=== PATIENT | male | born 1960 | race Caucasian/White ===

== ENCOUNTER 2024-09-09 13:20 | Outpatient (AMB) | payer OTHER, SELFPAY ==
--- NOTE | 2024-09-09 13:24 | MHC.OFFVIS ---
Vital Signs 09/09/24 13:26 Height 6 ft Weight 362 lb 4 oz BMI 49.1 BP 122/80 Blood Pressure Location Rt brachial Position Sitting Pulse 94 Pulse Source Pulse Oximeter Pulse Oximetry (%) 96 Oxygen Delivery Method Room Air Intake Visit Reasons: Somnolence Allergies No Known Allergies Allergy (Verified 09/09/24 13:28) HPI HPI Somnolence: Details: Sonido is a pleasant 62-year-old male, former smoker, with underlying atrial fibrillation maintained on Eliquis. He was referred by PCP for pulmonary evaluation with question of obstructive sleep apnea. He was recently diagnosed with atrial fibrillation status post failed cardioversion with plan for possible ablation. He is under the care of [facility] who believes AFib is related to uncontrolled obstructive sleep apnea. Reports ongoing witnessed apneas and loud snoring. He denies daytime fatigue however notes falling asleep quite easily during the day. He also notes that when he was under monitored anesthesia for ABDELRAHMAN his oxygen saturation dropped into the 50s. Denies the need for supplemental oxygen. He currently denies any respiratory symptoms. Denies prior history of asthma/COPD. COUNT INCLUDES THE [facility] Social History (Updated 09/09/24 @ 13:29 by Mirna Morris [facility]) Patient Tobacco Use Status: Never used Tobacco Review of Systems Const Denies chills, Denies excessive sweating, Denies fever(s), Denies headache(s) and Denies night sweats Eyes Denies dry eyes, Denies irritation and Denies itchy eyes ENT Reports Normal hearing present, Denies headache(s), Denies nasal congestion, Denies nasal discharge, Denies post nasal drip and Denies sore throat Card Denies chest pain, Denies chest pain at rest, Denies chest pain with activity, Denies claudication, Denies leg edema, Denies dyspnea, Denies dyspnea on exertion, Denies orthopnea and Denies paroxysmal nocturnal dyspnea Resp Denies chest congestion, Denies cough, Denies excessive phlegm production, Denies pain on inspiration, Denies pain with cough, Denies dyspnea, Denies dyspnea on exertion, Denies stridor and Denies wheezing Musc Denies myalgias Neuro Reports Normal hearing present and Denies headache(s) Endo Denies excessive sweating Ángel/Lymph Denies lymphadenopathy Aller/Immun Denies itchy eyes, Denies seasonal rhinorrhea and Denies wheezing Physical Exam Vital Signs: Last Vital Signs Pulse 94 09/09/24 13:26 BP 122/80 09/09/24 13:26 Pulse Ox 96 09/09/24 13:26 Oxygen Delivery Method Room Air 09/09/24 13:26 BMI result Body Mass Index 49.1 Const General: cooperative, healthy appearing, comfortable, no acute distress, well developed and alert Nutritional Appearance: obese Orientation/consciousness: patient oriented x3 Limitations: no limitations HEENT Head: Yes normal to inspection, Yes normocephalic and Yes atraumatic Ears: hearing grossly normal bilaterally and external ears normal Eyes General: appearance normal, both eyes and all related structures Eyelids: Yes eyelids normal Sclerae: sclerae normal EOM: EOMs intact bilaterally Neck Neck: Yes normal visual inspection and Yes no lymphadenopathy Lymphatic: no lymphadenopathy noted Chest Chest palpation & inspection: normal inspection of the chest Resp Effort & Inspection: normal respiratory effort, able to speak in complete sentences, no audible wheezes, no cough, no stridor, not tachypneic, no tripod positioning and no use of accessory muscles Auscultation: clear to auscultation bilaterally Cardio Jugular venous distension: no JVD Rate: regular rate Rhythm: regular rhythm Skin Other: warm, dry General skin exam: no rashes or lesions noted Neuro General: patient oriented x3 Cranial nerves: Yes Normal hearing present Cognition (Neuro): normal cognition Gait exam (Neuro): Normal gait present Extrem General: Yes normal to inspection, Yes capillary refill normal, Yes no clubbing, cyanosis or edema and Yes no pedal edema Psych Appearance: grossly normal and well kempt Speech and movement: Normal speech and movement present and Clear speech present Affect: normal affect Attitude: cooperative Thought process: Normal thought process present Thought content: Normal thought content present Insight: Good insight present (Psych) Judgement: Good judgement present (Psych) Assessment & Plan Assessment & Plan (1) Witnessed episode of apnea: Code(s): R06.81 - Apnea, not elsewhere classified Category: Medical (2) Loud snoring: Code(s): R06.83 - Snoring Category: Medical (3) Morbid obesity: Code(s): E66.01 - Morbid (severe) obesity due to excess calories Category: Medical Plan Sonido presents for pulmonary evaluation for symptoms suggestive of obstructive sleep apnea. Will send for in sleep study to further evaluate. All questions were answered and patient is in agreement with plan. Will follow-up to review results or sooner if needed. Orders: Orders RT PSG in-lab sleep study Today E66.01 - Morbid (severe) obesity due to excess calories, R06.81 - Apnea, not elsewhere classified, R06.83 - Snoring Coding Level of Care Code New Pt Level 3 (11383) Diagnoses Witnessed episode of apnea R06.81 Loud snoring R06.83 Morbid obesity E66.01
--- OUTSIDE RECORDS SUMMARY | 2024-09-09 13:24 | XMS_ITS | Clinical Summary ---
Author Organization [facility] [employer] [facility] Address [address] [place] [address] Phone Care Team Providers Care Locomotive Engineer Diesel Name Role Phone Moses Nielsen MD Primary Care Provider [phone] Allergies No known active allergies Medications EPINEPHrine (AUVI-Q) 0.15 mg/0.15 mL inj auto-injector injection Inject 0.15 mL (0.15 mg total) into the thigh 1 (one) time if needed. Active apixaban (ELIQUIS) 5 mg tablet Take 1 tablet (5 mg total) by mouth 2 (two) times a day. 60 tablet 11 5 Active dilTIAZem CD (CARDIZEM CD) 240 mg 24 hr capsule Take 1 capsule (240 mg total) by mouth 1 (one) time each day. 90 each 3 5 Active metoprolol tartrate (LOPRESSOR) 25 mg tablet Take 1 tablet (25 mg total) by mouth 2 (two) times a day. 180 each 3 5 Active dilTIAZem CD (CARDIZEM CD) 120 mg 24 hr capsule Take 2 capsules (240 mg total) by mouth 1 (one) time each day. 30 capsule 1 5 09/03/19 25 Discontinu ed(Reorder ) Active Problems Problem Noted Date Diagnosed Date Obstructive sleep apnea syndrome 08/08/2024 Assessment & Plan (09/02/2024 8:27 AM EDT): He has been diagnosed with JERMAIE and has an apt with sleep medicine pulmonology next week and apt for CPAP fitting in October. Atrial fibrillation with rap id ventricular response (CMS/HCC V24, CMS/HCC V28) 08/01/2024 Assessment & Plan (09/02/2024 8:28 AM EDT): Patient has newly diagnosed atrial fibrillation and the onset was unclear due to no symptoms of palpitations. It remains unclear whether atrial fibrillation is paroxysmal or has been persistent. He underwent a successful ABDELRAHMAN cardioversion on 08/08/2024 but unfortunately EKG done in the office today shows atrial fibrillation with rapid ventricular response with a rate of 103 bpm. He remains asymptomatic. I will reinitiate metoprolol 25 mg twice a day. He will continue on diltiazem 240 mg daily. Continue on Eliquis for a [id number] score of 2 for now. I am taking the liberty of referring him to the electrophysiology service to discuss management of atrial fibrillation, possibly initiating antiarrhythmics before attempting another cardioversion versus ablation or leaving him in permanent atrial fibrillation as he has been asymptomatic. He agrees to meet with the EP service. Assessment & Plan (08/02/2024 4:44 PM EDT): He has a newly diagnosed atrial fibrillation and onset is unclear due to no palpitation symptoms. It Is also unclear whether atrial fibrillation is paroxysmal or has been persistent. Heart rate appears slightly fast in the office but he reported low pulse rate using home pulse ox meter. I will scheduled 24-hour Holter monitor to assess heart rate variation and adjust metoprolol dosage accordingly. I will start him on anticoagulation with intention of sikhism of sinus rhythm. We discussed about risk and benefit of anticoagulation and he agreed with the plan. Will start Eliquis 5 mg twice a day for now. His blood pressure is in the high normal range on metoprolol 50 mg twice a day my office and his blood pressure in the [place] was also elevated. I think he has undiagnosed hypertension. The elevated proBNP level also suggests heart failure with preserved EF. His [id number] Vas score will be 2 for now. I feel he will need to long-term anticoagulation eventually. He snores per his and he could have a obstructive sleep apnea. This could be a potential trigger for his A-fib. I will check thyroid function. At some point, I will schedule coronary artery CTA after he is back to sinus rhythm due to intermittent chest burning sensation. Chest pain 08/01/2024 Encounters Date Type Department Care Team Description 09/02/2024 7:40 AM EDT Office Visit [facility] - [address] [place] [phone] Bree Stein NP Atrial fibrillation with rapid ventricular response (CMS/HCC V24, CMS/HCC V28) (Primary Dx); Obstructive sleep apnea syndrome 08/23/[address] [place] [phone] Bree Stein NP 08/08/2024 1:33 PM EDT Anesthesia Event [facility]em [facility] [address] [place] [phone] Leonora Guadarrama MD 08/08/2024 12:23 PM EDT - 08/08/2024 11:59 PM EDT Hospital Encounter [facility] [address] [place] [phone] Tammy Avalos MD Kriz, Petra, MD Atrial fibrillation, unspecified type (CMS/HCC V24, CMS/HCC V28) Discharge Disposition: Home or Self Care 08/08/2024 Telephone Gastroenterology - [address] [facility] [address] [facility] [address] [place] [phone] Miguel Rodriguez MD special procedure 08/04/2024 Telephone [facility] - [address] [place] [phone] Tammy Avalos MD Procedure (Cardioversion 4.21.25) 08/03/2024 4:04 PM EDT - 08/03/2024 11:59 PM EDT Hospital Encounter [facility] Non-Invasive Cardiology [address] [place] [phone] Unspecified atrial fibrillation (CMS/HCC V24, CMS/HCC V28) Discharge Disposition: Home or Self Care 08/03/2024 Telephone [facility] - [address] [place] [phone] Maria E Martins [place] 08/02/2024 2:30 PM EDT Ancillary Procedure [facility] - [address] [place] [phone] A-fib (CMS/HCC V24, CMS/HCC V28) 08/02/2024 1:30 PM EDT Office Visit [facility] - [address] [place] [phone] Tammy Avalos MD Atrial fibrillation with rapid ventricular response (CMS/HCC V24, CMS/HCC V28) (Primary Dx); A-fib (CMS/HCC V24, CMS/HCC V28) from Last 3 Months Medical History Medical History Date Comments Severe obesity (CMS/HCC V24, CMS/HCC V28) BPH (benign prostatic hyperplasia) Social History Tobacco Use Types Packs/Day Years Used Date Smoking Tobacco: Never Smokeless Tobacco: Never Tobacco Cessation:Counseling Given: Not Answered Alcohol Use Standard Drinks/Week Comments Never 0 (1 standard drink = 0.6 oz pur e alcohol) Sex and Gender Information Value Date Recorded Sex Assigned at Male 08/08/2024 12:22 PM EDT Legal Sex Male 8:12 AM EDT Gender Identity Male 08/08/2024 12:22 PM EDT Sexual Orientation Straight 08/08/2024 12 :22 PM EDT Obstetrics History Last Filed Vital Signs Vital Sign Reading Time Taken Comments Blood Pressure 138/78 09/02/2024 7:40 AM EDT Pulse 103 09/02/2024 7:40 AM EDT Temperature 36.3 ??C (97.4 ??F) 08/08/2024 1:09 PM ED T Respiratory Rate 19 08/08/2024 2:50 PM EDT Oxygen Saturation 98% 09/02/2024 7:40 AM EDT Inhaled Oxygen Concentration - - Weight 163 kg (360 lb) 09/02/2024 7:40 AM EDT Height 182.9 cm (6' 0.01 ) 09/02/2024 7:40 AM ED T Body Mass Index 48.81 09/02/2024 7:40 AM EDT Plan of Treatment Upcoming Encounters Date Type Department Care Team (Late st Contact Info) Description 11/07/2024 8:40 AM EDT Consult [facility] - [facility] [address] [facility] [address] [place] [phone] Keagan Sanchez MD [address] [facility] [address] [place] [address] Health Maintenance Due Date Last Done Comments DTaP,Tdap,and Td Vaccines (1 - Tdap) 11/06/1979 Pneumococcal Vaccine: 50+ Years (1 of 1 - PCV) 2010 Zoster Vaccines (1 of 2) 2010 RSV Immunization Adult Patients (1 - Risk 60-74 years 1-dose series) 2020 COVID-19 Vaccine (4 - 2023-2 5 season) 2023 05/19/2021, 09/16/2020, 08/19/2020 Cholesterol Screening (Lipid Panel) 07/29/2024 Colorectal Cancer Screening: Colonoscopy 07/29/2024 Depression Screening 07/29/2024 HIV Screening 07/29/2024 Hepatitis C Screening 07/29/2024 Social Influencers of Health Screening 07/29/2024 Influenza Vaccine (Season Ended) 2024 HIB Vaccines Aged Out No longer eligi ble based on patient's age to complete this topic HPV Vaccines Aged Out No longer eligi ble based on patient's age to complete this topic Hepatitis A Vaccines Aged Out No long er eligible based on patient's age to complete this topic Hepatitis B Vaccines Aged Out No long er eligible based on patient's age to complete this topic IPV Vaccines Aged Out No longer eligi ble based on patient's age to complete this topic MMR Vaccines Aged Out No longer eligi ble based on patient's age to complete this topic Meningococcal ACWY Vaccine Aged Out N o longer eligible based on patient's age to complete this topic Meningococcal B Vaccine Aged Out No l onger eligible based on patient's age to complete this topic Pneumococcal Vaccine: Pediatrics (0 to 5 Years) and At-Risk Patients (6 to 64 Years) Aged Out No longer eligible b ased on patient's age to complete this topic RSV Immunization Patients Under 20 months Aged Out No longer eligible b ased on patient's age to complete this topic Varicella Vaccines Aged Out No longer eligible based on patient's age to complete this topic Procedures Procedure Name Priority Date/Time Associated Diagnosis Comments ECG 12-LEAD Routine 09/02/2024 8:29 AM EDT Atrial fibrillation with rapid ventricular response (CMS/HCC V24, CMS/HCC V28) ECG OUTSIDE 08/10/2024 ABDELRAHMAN COMPLETE Routine 08/08/2024 2:23 PM EDT Atrial fibrillation, unspecified type (CMS/HCC V24, CMS/HCC V28) PROCEDURAL ECG STAT 08/08/2024 2:14 PM EDT ECG 12-LEAD Routine 08/03/2024 4:21 PM EDT Unspecified atrial fibrillation (CMS/HCC V24, CMS/HCC V28) CARDIAC HOLTER MONITOR (REPORT GENERATED IN HOUSE) Routine 08/02/2024 2:32 PM EDT A-fib (CMS/HCC V24, CMS/HCC V28) from Last 3 Months Results * ECG 12 lead (09/02/2024 8:29 AM EDT) Only the most recent of2 resultswithin the time period is included. Ventricular Rate ECG 103 BPM GEMUSE Atrial Rate 98 BPM GEMUSE QRS Duration 94 ms GEMUSE Q-T Interval 350 ms GEMUSE QTc 458 ms GEMUSE R [place] 70 degrees GEMUSE T [place] 27 degrees GEMUSE ECG Interpretation Atrial fibrillation with rapid ventricular response Confirmed by MD Zander, Matthieu ([id number]) on 09/05/2024 8:27:25 AM GEMUSE 09/02/2024 7:46 AM EDT 09/05/2024 8:27 AM EDT Bree Stein NP ECG ORDERABLES Edited Result - Final GEMUSE * ECG-Outside (08/10/2024) us Provider Onbase MD ECG ORDERABLES Final Result * ABDELRAHMAN COMPLETE (08/08/2024 2:23 PM EDT) BSA 2.86 m2 CV PACS Anatomical Region Laterality Modality X-Ray Angiograph y Narrative 08/08/2024 4:50 PM EDT ?Left ventricle cavity size is normal. Left ventricular systolic function is in the normal range with an ejection fraction of 55-60%.No regional LV wall motion abnormalities noted. ?Right ventricle cavity is mildly enlarged. Right ventricular systolic function is normal. ?Left atrial appendage emptying velocity is in mildly decreased to low normal range. ??No thrombus in the left atrial appendage. ?Mild mitral regurgitation. ?Mild tricuspid regurgitation. The patient demonstrates signs of significant obstructive sleep apnea during ABDELRAHMAN with transient hypoxia. ??He has been referred for sleep study by his primary care physician. ??At the meantime, advise him to sleep in lateral position with elevated head. Left Ventricle Left ventricle cavity size is normal. Systolic function is normal with an ejection fraction of 55-60%. There are no regional LV wall motion abnormalities. Right Ventricle Right ventricle cavity is mildly dilated. Systolic function is normal. Left Atrium Left atrium cavity is mildly dilated. The atrial appendage velocity is reduced (less than 40 cm/sec) to low normal range. There is no thrombus in the left atrial appendage. Right Atrium Right atrium cavity is mildly dilated. Mitral Valve Mitral valve structure is normal. There is mild regurgitation. There is no evidence of mitral valve stenosis. Tricuspid Valve Tricuspid valve structure is normal. There is mild regurgitation. There is no evidence of tricuspid valve stenosis. Cannot assess RVSP. Aortic Valve The aortic valve is trileaflet. There is no regurgitation or stenosis. Pulmonic Valve Visualized portions of the pulmonic valve appear normal. There is trace pulmonic valve regurgitation. There is no evidence of pulmonic valve stenosis. Ascending Aorta The aorta appears normal in size. Pericardium Pericardium appears normal. Study Details Overall the study quality was adequate. The underlying ECG rhythm was atrial flutter. The probe was inserted by the labor employment associate. There was no probe insertion difficulty. Topical medication administered: lidocaine gel. The patient had no complications. No specimens were collected. Tammy Avalos MD CV ECHO PROCEDURES Final Result * ECG 12 lead - Procedural (No Charge) (08/08/2024 2:14 PM EDT) Ventricular Rate ECG 61 BPM GEMUSE Atrial Rate 61 BPM GEMUSE P-R Interval 166 ms GEMUSE QRS Duration 92 ms GEMUSE Q-T Interval 438 ms GEMUSE QTc 440 ms GEMUSE P Wave [place] 27 degrees GEMUSE R [place] 38 degrees GEMUSE T [place] 3 degrees GEMUSE ECG Interpretation Normal sinus rhythm Normal ECG When compared with ECG of 03-AUG-2024 16:21, Sinus rhythm has replaced Atrial flutter with 2 to 1 block Vent. rate has decreased BY ??70 BPM Confirmed by Keith AVALOS YUFENG ([id number]) on 08/09/2024 7:58:31 AM GEMUSE 08/08/2024 2:14 PM EDT 08/09/2024 7:58 AM EDT Tammy Avalos MD ECG ORDERABLES Final Result GEMUSE * CARDIAC HOLTER MONITOR (REPORT GENERATED IN HOUSE) (08/02/2024 2:32 PM EDT) Anatomical Region Laterality Modality Cardiac Diagnost ic Narrative 08/05/2024 12:30 PM EDT [facility] DEPARTMENT [address] [place] [address], [place] [address] TEL: FAX: Type of test: ??24 hour Holter Monitor Date of test: ??08/02/24 Ordering provider: ??Tammy Avalos MD Reason for Test: ??Atrial Fibrillation PVCA Clinical Services Manager Findings: 1: Atrial Fibrillation/ Flutter noted throughout recording period. 2: Ventricular rate range was 75- 169 bpm with an average of 127 bpm. 3: Rare PVCs with two couplets. 4: No pauses noted. Longest R-R 1.3 sec. 5: Diary returned with no entries. Impression: Persistent atrial fibrillation with a rapid ventricular response. ??Average heart rate 127 bpm. us Tammy Avalos MD CV CARDIAC SERVICES PROCEDURES F inal Result from Last 3 Months Insurance ED [facility] [address] [place] [address] Care Teams Locomotive Engineer Diesel Relationship Specialty Start Date End Date Moses Nielsen MD [address] [facility] [address] [place] [address] PCP - General Oncology 08/03/24
[2024-09-09 13:26] VITALS: BP 122/80; PULSE 94; O2SAT 96; BMI 49.1
== END 2024-09-09 14:25 | disposition home or self-care (01) ==
LOC: HO.HPSW 13:20
PROVIDERS: PCP Internal Medicine Medical Oncology; Referring Provider Internal Medicine Medical Oncology; Visit Provider Nurse Practitioner Family
DX: R06.81 Apnea, not elsewhere classified (principal); R06.83 Snoring; E66.01 Morbid (severe) obesity due to excess calories
CPT/HCPCS: 99203

== ENCOUNTER → 2024-10-06 19:30 | Outpatient (REF) | payer OTHER, SELFPAY ==
--- OUTSIDE RECORDS SUMMARY | 2024-10-10 07:59 | XMS_ITS | Clinical Summary ---
Author Organization [facility] Address [address] [place] [address] Phone Care Team Providers Care Lead Mobile Developer Name Role Phone Moses Nielsen MD Primary Care Provider [phone] Allergies No known active allergies Medications EPINEPHrine [...] metoprolol tartrate (LOPRESSOR) 25 mg tablet Take 1.5 tablets (37.5 mg total) by mouth 2 (two) times a day. Active metoprolol tartrate (LOPRESSOR) 25 mg tablet Take 1 tablet (25 mg total) by mouth 2 (two) times a day. 180 each 3 5 09/20/19 25 Discontinued Active Problems Problem Noted Date Diagnosed Date Obstructive sleep apnea syndrome 08/08/2024 Assessment & Plan (09/02/2024 8:27 AM EDT): He has been diagnosed with JERAMIE and has an apt with sleep medicine [...] mg daily. Continue on Eliquis for a [id number] score of 2 for now. I am [...] start him on anticoagulation with intention of buddhism of sinus rhythm. We discussed about risk and benefit of anticoagulation and he agreed with the plan. Will start Eliquis 5 mg twice a day for now. His blood pressure is in the high normal range on metoprolol 50 mg twice a day my office and his blood pressure in the [facility] was also elevated. I think he has undiagnosed hypertension. The elevated proBNP level also suggests heart failure with preserved EF. His [id number] Vas score will be 2 for now. [...] Encounters Date Type Department Care Team Description 09/19/[address] [facility] [address] [place] [address] Bree Stein NP Medication 09/02/2024 7:40 AM EDT Office Visit [facility] [address] [place] [address] Bree Stein NP Atrial fibrillation with rapid ventricular response (CMS/HCC V24, CMS/HCC V28) (Primary Dx); Obstructive sleep apnea syndrome 08/23/2024 [address] [facility] [address] [place] [address] Bree Stein NP 08/08/2024 1:33 PM EDT Anesthesia Event [facility] [address] [place] [phone] Leonora Guadarrama MD 08/08/2024 12:23 PM EDT - 08/08/2024 11:59 PM EDT Hospital Encounter [facility] [address] [place] [phone] Tammy Avalos MD Kriz, Petra, MD Atrial fibrillation, unspecified type (CMS/HCC V24, CMS/HCC V28) Discharge Disposition: Home or Self Care 08/08/2024 Telephone Gastroenterology - [address] [facility] [address] [address] [place] [phone] Miguel Rodriguez MD special procedure 08/04/2024 Telephone [facility] [address] [place] [phone] Tammy Avalos MD Procedure (Cardioversion 4.21.25) 08/03/2024 4:04 PM EDT - 08/03/2024 11:59 PM EDT Hospital Encounter [facility] Non-Invasive Cardiology [address] [place] [phone] Unspecified atrial fibrillation (CMS/HCC V24, CMS/HCC V28) Discharge Disposition: Home or Self Care 08/03/2024 Telephone [facility] Cardiology [facility] [address] [place] [address] Maria E Martins MA 08/02/2024 2:30 PM EDT Ancillary Procedure [facility] Cardiology [facility] [address] [place] [phone] A-fib (CMS/HCC V24, CMS/HCC V28) 08/02/2024 1:30 PM EDT Office Visit [facility] Cardiology [facility] [address] [place] [phone] Tammy Avalos MD Atrial fibrillation with rapid [...] 103 09/02/2024 7:40 AM EDT Temperature 36.3 C (97.4 F) 08/08/2024 1:09 PM EDT Respiratory Rate 19 08/08/2024 2:50 PM EDT [...] Info) Description 11/07/2024 8:40 AM EDT Consult [facility] [address] [facility] [address] [place] [address] Keagan Sanchez MD [address] [facility] [address] [place] [address] Health Maintenance Due Date Last Done Comments [...] ms GEMUSE QTc 458 ms GEMUSE R [place] 70 degrees GEMUSE T [place] 27 degrees GEMUSE ECG Interpretation Atrial fibrillation [...] Angiograph y Narrative 08/08/2024 4:50 PM EDT Left ventricle cavity size is normal. Left ventricular systolic function is in the normal range with an ejection fraction of 55-60%.No regional LV wall motion abnormalities noted. Right ventricle cavity is mildly enlarged. Right ventricular systolic function is normal. Left atrial appendage emptying velocity is in mildly decreased to low normal range. No thrombus in the left atrial appendage. Mild mitral regurgitation. Mild tricuspid regurgitation. The patient demonstrates signs of significant obstructive sleep apnea during ABDELRAHMAN with transient hypoxia. He has been referred for sleep study by his primary care physician. At the meantime, advise him to sleep in [...] flutter. The probe was inserted by the brine tank operator. There was no probe insertion difficulty. Topical [...] GEMUSE QTc 440 ms GEMUSE P Wave [place] 27 degrees GEMUSE R [place] 38 degrees GEMUSE T [place] 3 degrees GEMUSE ECG Interpretation Normal sinus rhythm Normal ECG When compared with ECG of 03-AUG-2024 16:21, Sinus rhythm has replaced Atrial flutter with 2 to 1 block Vent. rate has decreased BY 70 BPM Confirmed by Keith AVALOS YUFENG ([id number]) on 08/09/2024 7:58:31 AM GEMUSE 08/08/2024 2:14 PM EDT 08/09/2024 7:58 AM EDT Tammy Avalos MD ECG ORDERABLES Final Result GEMUSE * CARDIAC HOLTER MONITOR (REPORT GENERATED IN HOUSE) (08/02/2024 2:32 PM EDT) Anatomical Region Laterality Modality Cardiac Diagnost ic Narrative 08/05/2024 12:30 PM EDT [facility] DI[facility]ING DEPARTMENT [address] [place] [address], [place] [address] TEL: FAX: Type of test: 24 hour Holter Monitor Date of test: 08/02/24 Ordering provider: Tammy Avalos MD Reason for Test: Atrial Fibrillation PVCA Supply Crib Attendant Findings: 1: Atrial Fibrillation/ Flutter noted throughout recording period. 2: Ventricular rate range was 75- 169 bpm with an average of 127 bpm. 3: Rare PVCs with two couplets. 4: No pauses noted. Longest R-R 1.3 sec. 5: Diary returned with no entries. Impression: Persistent atrial fibrillation with a rapid ventricular response. Average heart rate 127 bpm. us Tammy Avalos MD CV CARDIAC SERVICES PROCEDURES F inal Result from Last 3 Months Insurance [facility] [address] [place] [address] Care Teams Lead Mobile Developer Relationship Specialty Start Date End Date Moses Nielsen MD [address] [facility] [address] [place] [address] PCP - General Oncology 08/03/24
== END ==
LOC: HO.SL 19:30
PROVIDERS: PCP Internal Medicine Medical Oncology; Visit Provider Nurse Practitioner Family
DX: G47.33 Obstructive sleep apnea (adult) (pediatric) (principal); R06.83 Snoring; E66.01 Morbid (severe) obesity due to excess calories
CPT/HCPCS: 95810

== ENCOUNTER → 2024-10-06 20:30 | Outpatient (REF) | payer OTHER, SELFPAY | LOC: HO.SL 20:30 | PROVIDERS: PCP Internal Medicine Medical Oncology; Visit Provider Internal Medicine Medical Oncology | DX: Z13.89 Encounter for screening for other disorder (principal) ==

== ENCOUNTER → 2024-10-06 22:11 | Outpatient (BNV) | payer OTHER, SELFPAY | PROVIDERS: PCP Internal Medicine Medical Oncology; Visit Provider Internal Medicine | DX: G47.33 Obstructive sleep apnea (adult) (pediatric) (principal) | CPT/HCPCS: 95810 ==

== ENCOUNTER 2024-10-26 08:51 | Outpatient (AMB) | payer OTHER, SELFPAY ==
--- OUTSIDE RECORDS SUMMARY | 2024-08-26 13:45 | XMS_ITS ---
Author Organization Moses Nielsen III, MD Address [address] [place] [address] [place] [address] Care Team Providers Care Photogrammetry Airplane Pilot Name Role Phone Moses Nielsen Primary Care Provider REASON FOR VISIT Follow up Social History Sex Assigned At : Social History Observation Description Sex Assigned At Male Encounters Encounter Location Date Provider Diagnosis Moses Nielsen III, MD [address] [place] [address] [place] [address] 08/26/2024 Moses Nielsen Plan Of Treatment Next Appt Details Provider Name:Moses Nielsen, 12/01/2024 10:30:00 AM, [address] [place] [address] [place], [address], Provider Name:Moses Nielsen, 07/28/2025 02:30:00 PM, [address] [place] [address] [place], [address], Progress Notes * Kimberly NASCIMENTOOB: [birth year] (63 yo M)Acc No.[id number]:08/26/2024 Progress Notes Patient: Lawrence JORDENSonido Provider: Antonio Nielsen MD :1960 A ge:63 Y S ex:Male Date:08/26/2024 Address:[address] [place], [place] [id number] Subjective: * Chief Complaints: * 1 . Follow up. * Medical History: Objective: * Vitals: Assessment: Plan: * Treatment: * Images: * The named appointment provid er may or may not be the originator of this progress note, and it is not deemed complete until electronically signed by the appointment provider. Sign off status: Pending * Provider: Antonio Nielsen MD Date: 0 08/26/2024 Generated for Yudi cam/Nika/Marino on: 0 10/26/2024 09:05 AM EDT
--- NOTE | 2024-10-26 08:57 | A.OFFVIS_ITS ---
Vital Signs 10/26/24 08:58 Height 6 ft Weight 359 lb BMI 48.7 BP 120/72 Blood Pressure Location Rt brachial Position Sitting Pulse 81 Pulse Source Pulse Oximeter Pulse Oximetry (%) 94 Oxygen Delivery Method Room Air Intake Visit Reasons: Somnolence Allergies No Known Allergies Allergy (Verified 10/26/24 09:00) HPI HPI Somnolence: Details: Sonido is a pleasant 6-year-old male, former smoker, with underlying atrial fibrillation maintained on Eliquis status post failed cardioversion with plan for possible ablation. He is under the care of [facility] who believes AFib is related to uncontrolled obstructive sleep apnea and was sent for in lab PSG. Today he presents to review results. He currently denies any respiratory symptoms. Of note, he is down 38 lbs in two months due to diet changes and motivated to continue. [facility] Social History Patient Tobacco Use Status: Never used Tobacco Review of Systems Const Denies chills, Denies excessive sweating, Denies fever(s), Denies headache(s) and Denies night sweats Eyes Denies dry eyes, Denies irritation and Denies itchy eyes ENT Reports Normal hearing present, Denies headache(s), Denies nasal congestion, Denies nasal discharge, Denies post nasal drip and Denies sore throat Card Denies chest pain, Denies chest pain at rest, Denies chest pain with activity, Denies claudication, Denies leg edema, Denies dyspnea, Denies dyspnea on exertion, Denies orthopnea and Denies paroxysmal nocturnal dyspnea Resp Denies chest congestion, Denies cough, Denies excessive phlegm production, Denies pain on inspiration, Denies pain with cough, Denies dyspnea, Denies dyspnea on exertion, Denies stridor and Denies wheezing Musc Denies myalgias Neuro Reports Normal hearing present and Denies headache(s) Endo Denies excessive sweating Ángel/Lymph Denies lymphadenopathy Aller/Immun Denies itchy eyes, Denies seasonal rhinorrhea and Denies wheezing Physical Exam Vital Signs: Last Vital Signs Pulse 81 10/26/24 08:58 BP 120/72 10/26/24 08:58 Pulse Ox 94 10/26/24 08:58 Oxygen Delivery Method Room Air 10/26/24 08:58 BMI result Body Mass Index 48.7 Const General: cooperative, healthy appearing, comfortable, no acute distress, well developed and alert Nutritional Appearance: obese Orientation/consciousness: patient oriented x3 Limitations: no limitations HEENT Head: Yes normal to inspection, Yes normocephalic and Yes atraumatic Ears: hearing grossly normal bilaterally and external ears normal Eyes General: appearance normal, both eyes and all related structures Eyelids: Yes eyelids normal Sclerae: sclerae normal EOM: EOMs intact bilaterally Neck Neck: Yes normal visual inspection and Yes no lymphadenopathy Lymphatic: no lymphadenopathy noted Chest Chest palpation & inspection: normal inspection of the chest Resp Effort & Inspection: normal respiratory effort, able to speak in complete sentences, no audible wheezes, no cough, no stridor, not tachypneic, no tripod positioning and no use of accessory muscles Auscultation: clear to auscultation bilaterally Cardio Jugular venous distension: no JVD Rate: regular rate Rhythm: abnormal rhythm Skin Other: warm, dry General skin exam: no rashes or lesions noted Neuro General: patient oriented x3 Cranial nerves: Yes Normal hearing present Cognition (Neuro): normal cognition Gait exam (Neuro): Normal gait present Extrem General: Yes normal to inspection, Yes capillary refill normal, Yes no clubbing, cyanosis or edema and Yes no pedal edema Psych Appearance: grossly normal and well kempt Speech and movement: Normal speech and movement present and Clear speech present Affect: normal affect Attitude: cooperative Thought process: Normal thought process present Thought content: Normal thought content present Insight: Good insight present (Psych) Judgement: Good judgement present (Psych) Assessment & Plan Assessment & Plan (1) Severe obstructive sleep apnea: Code(s): G47.33 - Obstructive sleep apnea (adult) (pediatric) Category: Medical (2) Nocturnal hypoxemia: Code(s): G47.34 - Idiopathic sleep related nonobstructive alveolar hypoventilation Category: Medical Plan Reviewed sleep study results with patient which revealed an AHI of 75, severe obstructive sleep apnea, with mild nocturnal hypoxemia <88% for 29 minutes. Given the severity, combined with persistent nocturnal hypoxemia, an in lab titration study is recommended however will start CPAP therapy in APAP mode and pressure settings of 6-20 cmH20 with close monitoring for compliance and benefits. Sleep hygiene education reviewed. He is aware if there are any issues with the mask or CPAP machine, to call the [employer] company or office. Once established on CPAP therapy, may need to consider overnight oximetry to ensure resolution of nocturnal hypoxemia with CPAP use. All questions were answered and patient is in agreement of plan. Will follow up in 10-12 weeks or sooner if needed Orders: Orders RT PSG in-lab sleep titration Today G47.33 - Obstructive sleep apnea (adult) (pediatric), G47.34 - Idiopathic sleep related nonobstructive alveolar hypoventilation Coding Level of Care Code Est Pt Level 4 (10974) Diagnoses Severe obstructive sleep apnea G47.33 Nocturnal hypoxemia G47.34
[2024-10-26 08:58] VITALS: BP 120/72; PULSE 81; O2SAT 94; BMI 48.7
--- OUTSIDE RECORDS SUMMARY | 2024-10-26 09:05 | XMS_ITS | Clinical Summary ---
Author Organization [facility] Address [address] [place] [place] [address] Phone Care Team Providers Care Cone Classifier Tender Name Role Phone Moses Nielsen MD Primary Care Provider [phone] Allergies No known active allergies Medications EPINEPHrine (AUVI-Q) 0.15 mg/0.15 mL inj auto-injector injection Inject 0.15 mL (0.15 mg total) into the thigh 1 (one) time if needed. Active apixaban (ELIQUIS) 5 mg tablet Take 1 tablet (5 mg total) by mouth 2 (two) times a day. 60 tablet 11 08/02/2024 Active dilTIAZem CD (CARDIZEM CD) 240 mg 24 hr capsule Take 1 capsule (240 mg total) by mouth 1 (one) time each day. 90 each 3 09/02/2024 Active metoprolol tartrate (LOPRESSOR) 25 mg tablet Take 1.5 tablets (37.5 mg total) by mouth 2 (two) times a day. Active Active Problems Problem Noted Date Diagnosed Date [...] mg daily. Continue on Eliquis for a [id number] score of 2 for now. I am [...] start him on anticoagulation with intention of scientologist of sinus rhythm. We discussed about risk [...] suggests heart failure with preserved EF. His [id number] Vas score will be 2 for now. [...] Type Department Care Team Description 09/19/2024 Telephone [facility] Cardiology [facility] [address] [place] [address] Bree Setin NP Medication 09/02/2024 7:40 AM EDT Office Visit [facility] [address] [place] [address] Bree Stein NP Atrial fibrillation with rapid ventricular response (CMS/HCC V24, CMS/HCC V28) (Primary Dx); Obstructive sleep apnea syndrome 08/23/2024 Telephone [facility] - [address] [place] [address] Bree Stein NP 08/08/2024 1:33 PM EDT Anesthesia Event [facility] Cardiac Lab Tester [address] [place] [address] Leonora Guadarrama MD 08/08/2024 12:23 PM EDT - 08/08/2024 11:59 PM EDT Hospital Encounter [facility] Cardiac Lab Tester [address] [place] [phone] Tammy Avalos MD Kriz, Petra, MD Atrial fibrillation, unspecified type (CMS/HCC V24, CMS/HCC V28) Discharge Disposition: Home or Self Care 08/08/2024 Telephone Gastroenterology - [address] [facility] [address] [place] [address] Miguel Rodriguez MD special procedure 08/04/2024 Telephone [facility] - [address] [place] [address] Tammy Avalos MD Procedure (Cardioversion 4.21.25) 08/03/2024 4:04 PM EDT - 08/03/2024 11:59 PM EDT Hospital Encounter [facility] Non-Invasive Cardiology [address] [place] [address] Unspecified atrial fibrillation (CMS/HCC V24, CMS/HCC V28) Discharge Disposition: Home or Self Care 08/03/2024 Telephone [facility] [address] [place] [phone] Maria E Martins MA 08/02/2024 2:30 PM EDT Ancillary Procedure [facility] - [address] [place] [address] A-fib (CMS/HCC V24, CMS/HCC V28) 08/02/2024 1:30 PM EDT Office Visit [facility] - [address] [place] [address] Tammy Avalos MD Atrial fibrillation with rapid [...] Info) Description 11/07/2024 8:40 AM EDT Consult [facility] - [facility] [address] [facility] [address] [place] [phone] Keagan Sanchez MD [address] [facility] [address] [place] [address] Health Maintenance Due Date Last Done Comments DTaP,Tdap,and Td Vaccines (1 - Tdap) 11/06/1979 Pneumococcal Vaccine: 50+ Years (1 of 1 - PCV) 2010 Zoster Vaccines (1 of 2) 2010 RSV Immunization Adult Patients (1 - Risk 60-74 years 1-dose series) 2020 COVID-19 Vaccine (2023-2 5 season) 2023 05/19/2021, 09/16/2020, 08/19/2020 Cholesterol [...] 5 Years) and At-Risk Patients (6 to 49 Years) Aged Out No longer eligible b [...] ms GEMUSE QTc 458 ms GEMUSE R [place] 70 degrees GEMUSE T [place] 27 degrees GEMUSE ECG Interpretation Atrial fibrillation with rapid ventricular response Confirmed by MD Fermin Christopher ([id number]) on 09/05/2024 8:27:25 AM GEMUSE 09/02/2024 7:46 AM EDT 09/05/2024 8:27 AM EDT us Bree Stein NP ECG ORDERABLES Edited Result - Final GEMUSE * ECG-Outside (08/10/2024) us Provider Onbase ECG ORDERABLES Final Result * ABDELRAHMAN COMPLETE [...] flutter. The probe was inserted by the president and chief executive officer. There was no probe insertion difficulty. Topical [...] GEMUSE QTc 440 ms GEMUSE P Wave [place] 27 degrees GEMUSE R [place] 38 degrees GEMUSE T [place] 3 degrees GEMUSE ECG Interpretation Normal sinus [...] Diagnost ic Narrative 08/05/2024 12:30 PM EDT [facility] DI[facility]ING DEPARTMENT [address] [place] [address] TEL: FAX: Type of test: 24 hour Holter Monitor Date of test: 08/02/24 Ordering provider: Tammy Avalos MD Reason for Test: Atrial Fibrillation PVCA Vulnerability Assessment Analyst Findings: 1: Atrial Fibrillation/ Flutter noted throughout [...] inal Result from Last 3 Months Insurance [facility] [address] [place] [address] Care Teams Cone Classifier Tender Relationship Specialty Start Date End Date Moses Nielsen MD [address] [facility] [address] [place] [address] PCP - General Oncology 08/03/24
== END 2024-10-26 10:09 | disposition home or self-care (01) ==
LOC: HO.HPSW 08:52
PROVIDERS: PCP Internal Medicine Medical Oncology; Visit Provider Nurse Practitioner Family
DX: G47.33 Obstructive sleep apnea (adult) (pediatric) (principal); G47.34 Idiopathic sleep related nonobstructive alveolar hypoventilation
CPT/HCPCS: 99214